=== PATIENT | female | born 1930 | race Caucasian/White ===

== ENCOUNTER 2017-02-05 09:10 | Day surgery (SDC) | payer MEDICARE, OTHER ==
[~2017-02-05 09:10] MED LIST: AMITRIPTYLINE H25 M1 PO; ASPIR 8181 M1 PO; COREG25 M1 PO; CYANOCOBALAMIN; FOLIC ACID1 M1 PO; LASIX20 M1 PO; NEXIUM20 M1 PO; NORCO 5-325 TA1 EACH PO; ZYLOPRIM100 M1 PO; ZYRTEC10 M7 PO
[2017-02-05 10:49] LABS: BASO % 0.8 % (0-2); BASO ABSOLUTE COUNT 0.1 tho/cmm (0.0-0.2); EOS % 4.2 % (0-7); EOSINOPHIL ABSOLUTE COUNT 0.3 tho/cmm (0.0-0.7); HCT-HEMATOCRIT 40.2 % (34.0-49.0); HGB-HEMOGLOBIN 13.7 gm/dl (12.0-15.5); LYMPH % 31.2 % (20-45); LYMPH ABSOLUTE COUNT 2.3 tho/cmm (0.8-4.5); MCH (MEAN CORPUSCULAR HGB) 32.5 pg (28.0-32.0); MCHC MEAN CORPUSCULAR HGB CONC 34.1 % (32.0-36.0); MCV (MEAN CELL VOLUME) 95.5 fl (82.0-96.0); MEAN PLATELET VOLUME 9.5 cmc (9.4-12.4); MONO % 10.5 % (0-12); MONOCYTE ABSOLUTE COUNT 0.8 tho/cmm (0.0-1.2); NEUTROPHIL ABSOLUTE COUNT 3.9 tho/cmm (1.6-8.0); NEUTROPHIL-AUTOMATED 3.9 tho/cmm (1.6-8.0); NEUTROPHILS % 53.3 % (40-80); PLATELET COUNT 141 tho/cmm (150-450); RED BLOOD COUNT 4.21 mil/cmm (4.00-5.20); RED CELL DISTRIBUTION WIDTH 13.1 % (12.4-16.4); WHITE BLOOD COUNT 7.2 tho/cmm (4.0-10.0)
[2017-02-05 10:53] LABS: PROTHROMBIN TIME 11.9 SECONDS (9.0-13.6)
[2017-02-05 11:02] LABS: ANION GAP 10 mmol/L (0-20); BLOOD UREA NITROGEN 23 mg/dl (6-24); CALCIUM 8.8 mg/dl (8.5-10.5); CARBON DIOXIDE-VENOUS 32 mmol/L (22-32); CHLORIDE 100 mmol/l (96-110); CREATININE 1.17 mg/dl (0.50-1.10); GLUCOSE 112 mg/dL (70-110); POTASSIUM 3.8 mmol/L (3.7-5.1); SODIUM 138 mmol/L (135-145); eGFR VALUE FOR BLACK 49 mL/Min
--- NOTE | 2017-02-05 20:58 | NUR ---
VIRTUAL CARE NOTE: ASSESSMENT DEFERRED. PT WAS NOT IN BED AT 1908, AND IS NOW SLEEPING. WILL CONTINUE WITH CHART REVIEW.
[2017-02-06] MEDS ORDERED: NORCO 5-325 TA1 EACH PO (14:26)
== END 2017-02-06 15:00 ==
LOC: SRG 09:10 → SHSB 09:13 → PACU 14:00 → 5WD 16:20
PROVIDERS: Surgery
PROC: 0WUF0JZ Supplement Abdominal Wall with Synthetic Substitute, Open Approach (ICD-10-PCS; principal; 2017-02-05)
DX: Z79.82 Long term (current) use of aspirin (principal); I10 Essential (primary) hypertension; I25.10 Atherosclerotic heart disease of native coronary artery without angina pectoris; M19.90 Unspecified osteoarthritis, unspecified site; Z79.899 Other long term (current) drug therapy; Z88.8 Allergy status to other drugs, medicaments and biological substances; Z88.6 Allergy status to analgesic agent; Z98.890 Other specified postprocedural states; Z95.0 Presence of cardiac pacemaker; Z98.41 Cataract extraction status, right eye; Z98.42 Cataract extraction status, left eye; Z95.2 Presence of prosthetic heart valve; Z90.49 Acquired absence of other specified parts of digestive tract
CPT/HCPCS: C1781; J0131; J0690; J1170; J2405; J3010; J7040